=== PATIENT | male | born 1970 | race Caucasian/White ===

== ENCOUNTER 2016-07-19 22:26 | Emergency (ER) | payer BC ==
[~2016-07-19] VITALS: Ht 172.7 cm; Wt 91.9 kg
[~2016-07-19 22:26] MED LIST: FLEXERIL10 MG PO; IBUPROFEN800 MG PO; NORCO 5/3251 TABLET PO; ZOCOR20 MG PO
[2016-07-19 22:52] LABS: HEMATOCRIT 47.1 % (38.0-50.0); MCH 30.4 PG (29.0-34.0); MCHC 34.2 G/DL (30.0-36.0); MEAN PLAT.VOLUME 10.1 uM^3 (9.0-12.4); PLATELET COUNT 249 K/uL (156-360); RBC DIS.WIDTH-CV 12.6 % (11.8-14.6); RBC DIS.WIDTH-SD 40.9 % (39-53); RED BLOOD COUNT 5.29 M/uL (4.00-5.50); WHITE BLOOD COUNT 11.7 K/uL (4.1-10.2)
[2016-07-19 23:03] LABS: CHLORIDE 109 mEq/L (99-109); POTASSIUM 4.2 mEq/L (3.7-5.4); SODIUM 142 mEq/L (136-147)
[2016-07-19 23:05] LABS: GLUCOSE 104 mg/dL (70-99)
[2016-07-19 23:07] LABS: ANION GAP 11 MEQ/L (2-14); TOTAL BILIRUBIN 0.7 mg/dL (0.0-1.0)
[2016-07-19 23:09] LABS: ALKALINE PHOSPHATASE 108 IU/L (3-129); GFR ESTIMATE (CALCULATED) > 59 mL/min/
[2016-07-19 23:10] LABS: UREA NITROGEN (BUN) 15 mg/dL (9-23)
[2016-07-20 02:53] LABS: LIPASE 32 U/L (1.0-51.0)
[2016-07-20] MEDS ORDERED: CIPRO500 MG PO (04:31)
[2016-07-20] MEDS ORDERED: ZOFRAN ODT4 MG PO (04:31)
[2016-07-20] MEDS ORDERED: FLAGYL500 MG PO (04:31)
[2016-07-20] MEDS ORDERED: PERCOCET 5/31 TABLET PO (04:31)
[2016-07-20 06:07] VITALS: BP 142/76
== END 2016-07-20 06:08 | disposition home or self-care (01) ==
LOC: EME 22:26
DX: K52.9 Noninfective gastroenteritis and colitis, unspecified (principal); F17.200 Nicotine dependence, unspecified, uncomplicated
CPT/HCPCS: 74177; 80053; 81003; 83605; 83690; 85027; 87040; 99281; 99285; J1170; J2405; S0030